=== PATIENT | female | born 1960 | race Caucasian/White ===

== ENCOUNTER 2016-11-28 11:48 | Emergency (ER) | payer OTHER ==
[2016-11-28 11:53] VITALS: BP 119/53; PULSE 81; TEMP 98.1; BMI 27.7
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
== END 2016-11-28 13:31 | disposition home or self-care (01) ==
LOC: JERFT 11:48
DX: S90.122A Contusion of left lesser toe(s) without damage to nail, initial encounter (principal); S80.212A Abrasion, left knee, initial encounter; W19.XXXA Unspecified fall, initial encounter; Y93.89 Activity, other specified; Y92.89 Other specified places as the place of occurrence of the external cause
CPT/HCPCS: 73562-TC-LT; 73630-TC-LT; 99281-25

== ENCOUNTER 2016-12-10 16:13 | Emergency (ER) | payer OTHER ==
[2016-12-10 16:32] VITALS: BP 128/76; PULSE 73; TEMP 97.7; BMI 28.2
[2016-12-10] MEDS ORDERED: ACETAMINOPHEN 325 MG TABLET (FP) PO ONE (16:38)
[2016-12-10] MEDS ORDERED: traMADol HCL 50 MG TABLET PO ONE (16:38)
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
== END 2016-12-10 16:51 | disposition home or self-care (01) ==
LOC: FER 16:13
DX: M79.672 Pain in left foot (principal); G89.29 Other chronic pain; K21.9 Gastro-esophageal reflux disease without esophagitis; Z87.891 Personal history of nicotine dependence
CPT/HCPCS: 99282-25

== ENCOUNTER 2020-01-19 12:23 | Day surgery (SDC) | payer OTHER ==
[2020-01-17 14:38] VITALS: BMI 27.4
[2020-01-19] MEDS ORDERED: ACETAMINOPHEN 325 MG TABLET (FP) ONE (13:44)
[2020-01-19] MEDS ORDERED: ACETAMINOPHEN 325 MG TABLET (FP) PO ONE (14:09)
[2020-01-19 15:15] VITALS: TEMP 98.5
[2020-01-19 15:23] VITALS: BP 105/55; PULSE 62
== END 2020-01-19 14:30 | disposition home or self-care (01) ==
LOC: FASU-ENDO 12:23
PROVIDERS: ATTEND Internal Medicine Gastroenterology
PROC: 0DJD8ZZ Inspection of Lower Intestinal Tract, Via Natural or Artificial Opening Endoscopic (ICD-10-PCS; principal; 2020-01-19 12:57)
DX: Z86.010 Personal history of colon polyps (principal); Z80.0 Family history of malignant neoplasm of digestive organs; K64.8 Other hemorrhoids

== ENCOUNTER 2020-10-04 11:55 | Emergency (ER) | payer OTHER ==
[2020-10-04 12:17] VITALS: BP 112/61; PULSE 78; TEMP 97.8; BMI 25.0
[2020-10-04] MEDS ORDERED: KETOROLAC TROMETHAMINE 30 MG/1 ML VIAL IM ONE (13:10)
[2020-10-04] MEDS ORDERED: KETOROLAC TROMETHAMINE 30 MG/1 ML VIAL ONE (13:30)
== END 2020-10-04 14:03 | disposition home or self-care (01) ==
LOC: JER 11:55 → JERFT 11:55
PROC: 3E0233Z Introduction of Anti-inflammatory into Muscle, Percutaneous Approach (ICD-10-PCS; principal; 2020-10-04)
DX: L03.116 Cellulitis of left lower limb (principal); M25.551 Pain in right hip; S89.92XA Unspecified injury of left lower leg, initial encounter
CPT/HCPCS: 73502-TC-RT-FY; 73562-TC-LT-FY; 99284-25

== ENCOUNTER 2020-10-15 12:35 | Emergency (ER) | payer OTHER ==
[2020-10-15 12:59] VITALS: BP 121/69; PULSE 74; TEMP 98.2; BMI 25.0
== END 2020-10-15 15:31 | disposition home or self-care (01) ==
LOC: JERFT 12:35
DX: S89.92XA Unspecified injury of left lower leg, initial encounter (principal)
CPT/HCPCS: 93971-TC; 99284-25

== ENCOUNTER 2021-03-24 11:43 | Emergency (ER) | payer OTHER ==
[2021-03-24 12:10] VITALS: BP 108/70; PULSE 73; TEMP 98.3; BMI 25.8
[2021-03-24] MEDS ORDERED: METHOCARBAMOL 500 MG TABLET PO ONE (12:43)
[2021-03-24] MEDS ORDERED: KETOROLAC TROMETHAMINE 15 MG/ML VIAL IM ONE (12:43)
[2021-03-24] MEDS ORDERED: METHOCARBAMOL 500 MG TABLET ONE (12:55)
[2021-03-24] MEDS ORDERED: KETOROLAC TROMETHAMINE 15 MG/ML VIAL ONE (12:55)
== END 2021-03-24 14:01 | disposition home or self-care (01) ==
LOC: JERFT 11:43
PROC: 3E023GC Introduction of Other Therapeutic Substance into Muscle, Percutaneous Approach (ICD-10-PCS; principal; 2021-03-24)
DX: R51.9 Headache, unspecified (principal); Y04.8XXA Assault by other bodily force, initial encounter
CPT/HCPCS: 70150-TC-FY; 73000-TC-RT-FY; 96372; 99284-25

== ENCOUNTER 2022-06-01 12:28 | Emergency (ER) | payer OTHER ==
[2022-06-01 13:01] VITALS: BP 106/54; PULSE 67; RESP 18; TEMP 98.4; BMI 24.2
[2022-06-01] MEDS ORDERED: DEXAMETHASONE SOD PHOSPHATE 10 MG/1 ML VIAL IVPUSH ONE (13:22)
[2022-06-01] MEDS ORDERED: SODIUM CHLORIDE 0.9% 500 ML INFUS.BAG IV ONE (13:22)
[2022-06-01] MEDS ORDERED: KETOROLAC TROMETHAMINE 30 MG/1 ML VIAL IVPUSH ONE (13:22)
== END 2022-06-01 18:59 | disposition home or self-care (01) ==
LOC: JER 12:28
PROC: 3E033GC Introduction of Other Therapeutic Substance into Peripheral Vein, Percutaneous Approach (ICD-10-PCS; principal; 2022-06-01)
DX: U07.1 COVID-19 (principal)
CPT/HCPCS: 70360-TC-FY; 99284-25; J1100

== ENCOUNTER 2023-05-12 15:34 | Emergency (ER) | payer OTHER ==
[2023-05-12 15:43] VITALS: BP 115/69; PULSE 73; RESP 17; TEMP 98.3; BMI 29.0
== END 2023-05-12 16:02 | disposition left against medical advice (07) ==
LOC: JER 15:34
DX: R42 Dizziness and giddiness (principal)
CPT/HCPCS: 99281-25

== ENCOUNTER 2024-01-17 11:30 | Emergency (ER) | payer OTHER ==
[2024-01-17 11:38] VITALS: BP 101/67; PULSE 71; RESP 18; TEMP 98.5; BMI 27.4
[2024-01-17] MEDS ORDERED: ACETAMINOPHEN 500 MG TABLET (FP) ONE (12:43)
[2024-01-17] MEDS: ACETAMINOPHEN 500 MG TABLET (FP) PO ONE (13:17)
== END 2024-01-17 16:10 | disposition home or self-care (01) ==
LOC: JERFT 11:30
DX: S05.91XA Unspecified injury of right eye and orbit, initial encounter (principal); W13.4XXA Fall from, out of or through window, initial encounter; Z20.822 Contact with and (suspected) exposure to COVID-19
CPT/HCPCS: 0241U-QW; 70486-TC; 99284-25

== ENCOUNTER 2024-08-16 14:04 | Emergency (ER) | payer OTHER ==
[2024-08-16 14:20] VITALS: BP 106/62; PULSE 74; RESP 18; TEMP 98.8; BMI 25.0
[2024-08-16] MEDS ORDERED: ACETAMINOPHEN INJECTION 100 ML ONE (16:19)
[2024-08-16] MEDS: ACETAMINOPHEN 1000 MG/100 ML BAG IVPB ONE (16:25)
[2024-08-16 16:27] LABS: BASO % 0.4 % (0-2.0); EOS % 2.2 % (0-4.5); HEMATOCRIT 38.9 % (32.4-45.2); HEMOGLOBIN 12.9 GM/dL (10.7-15.3); LYMPH % 23.9 % (8-40); MCH 28.8 pg (25.7-33.7); MCHC 33.2 g/dl (32.0-36.0); MEAN CELL VOLUME 86.7 fl (80-96); MEAN PLT VOLUME 7.8 fl (7.5-11.1); MONO % 9.1 % (3.8-10.2); NEUT % 64.4 % (42.8-82.8); PLATELET COUNT 262 10^3/uL (134-434); RBC 4.49 M/mm3 (3.60-5.2); RDW 13.8 % (11.6-15.6); WHITE BLOOD COUNT 6.6 K/mm3 (4.0-10.0)
[2024-08-16 16:33] LABS: INR 1.02 (0.83-1.09); PROTHROMBIN TIME (PATIENT) 11.1 SEC (9.7-13.0)
[2024-08-16 16:36] LABS: ACTIVATED PTT 31.4 SECONDS (25.2-36.5)
[2024-08-16 16:48] LABS: CALCIUM 8.8 mg/dL (8.5-10.1); POTASSIUM 3.5 mmol/L (3.5-5.1)
[2024-08-16 16:49] LABS: ALBUMIN 3.9 g/dl (3.4-5.0); BLOOD UREA NITROGEN 16.8 mg/dL (7-18); MAGNESIUM 1.9 mg/dL (1.8-2.4)
[2024-08-16 16:52] LABS: CREATININE 0.7 mg/dL (0.55-1.3)
[2024-08-16 16:55] LABS: BILIRUBIN,TOTAL 0.7 mg/dL (0.2-1); TOT PROT 6.8 g/dl (6.4-8.2)
[2024-08-16] MEDS ORDERED: KETOROLAC TROMETHAMINE 30 MG/1 ML VIAL ONE (17:30)
[2024-08-16] MEDS: KETOROLAC TROMETHAMINE 30 MG/1 ML VIAL IM ONE (17:39)
[2024-08-16] MEDS: ACETAMINOPHEN 500 MG TABLET (FP) PO ONE (17:40)
== END 2024-08-16 19:07 | disposition left against medical advice (07) ==
LOC: JER 14:04
PROC: 3E033NZ Introduction of Analgesics, Hypnotics, Sedatives into Peripheral Vein, Percutaneous Approach (ICD-10-PCS; principal; 2024-08-16)
PROC: 3E0233Z Introduction of Anti-inflammatory into Muscle, Percutaneous Approach (ICD-10-PCS; 2024-08-16)
DX: M79.604 Pain in right leg (principal); M79.605 Pain in left leg
CPT/HCPCS: 36415; 73562-TC-LT-FY; 73562-TC-RT-FY; 73590-TC-LT-FY; 73590-TC-RT-FY; 73610-TC-LT-FY; 73610-TC-RT-FY; 73630-TC-LT; 73630-TC-RT-FY; 80053; 82550; 82553; 83735; 84443; 85025; 85610; 85730; 93970-TC; 96372; 96374; 99285-25; J0131